=== PATIENT | female | born 1950 | race Caucasian/White ===

== ENCOUNTER 2018-08-15 18:09 | Emergency (ER) | payer MEDICARE, SELFPAY ==
[2018-08-15 18:11] VITALS: BP 183/86; PULSE 79; RESP 28; TEMP 36.2; O2SAT 100; BMI 43.5
--- NOTE | 2018-08-15 18:14 | EKG12_ITS ---
Test Reason : CP Blood Pressure : / mmHG Vent. Rate : 073 BPM Atrial Rate : 073 BPM P-R Int : 178 ms QRS Dur : 108 ms QT Int : 414 ms P-R-T Axes : 059 -51 056 degrees QTc Int : 456 ms Normal sinus rhythm Left anterior fascicular block Moderate voltage criteria for LVH, may be normal variant Lateral infarct , age undetermined Abnormal ECG Confirmed by MAYURI MARTINEZ, SHERWIN ([id number]), supervising editor news reel SHAJI MOAR ([id number]) on 08/20/2018 9:11:05 AM Referred By: DC Confirmed By:SHERWIN MESSINA MD
--- NOTE | 2018-08-15 18:14 | RAD_ITS ---
STUDY: X-RAY CHEST REASON FOR EXAM: Female, 68 years old. Chest pain TECHNIQUE: Single AP portable view of the chest. COMPARISON: 11/01/2013. FINDINGS: The lungs are clear and expanded. There is no demonstrated pleural abnormality. Normal size heart. Normal mediastinum and pop. Normal visualized pulmonary arteries. Normal visualized aortic arch and descending thoracic aorta. Normal visualized thoracic spine. Normal visualized ribs, clavicles, and shoulders. There is no demonstrated abnormality of the visualized soft tissue structures of the upper abdomen. RAD/Chest 1 View (Portable) IMPRESSION: Normal x-ray examination of the chest. Electronically Signed: Link Barahona MD at 18:57 EST , Service support ,
[2018-08-15 18:38] LABS: Absolute Lymphocyte Count 2.98 X10^3/ul (0.83-4.51); Absolute Neutrophil Count 6.9 X10^3/uL (2.0-7.7); Basophil% 0.9 % (0-1); Eosinophil# 0.39 X10^3/uL; Eosinophils% 3.5 % (0-5); Hemoglobin 14.1 g/dl (12.0-15.0); Lymphocyte # 2.98 X10^3/ul (4.0); Lymphocyte % 26.6 % (19-41); Mean Corpuscular Hgb 29.9 pg (27.0-32.0); Mean Corpuscular Volume 93.4 fL (81-99); Mean Platelet Vol. 11.7 fl (6.2-12.0); Monocyte# 0.88 X10^3/uL; Monocyte% 7.8 % (0-10); Neutrophil # 6.85 X10^3/uL (2.7-7.7); POSITIVE COUNT NO; POSITIVE DIFFERENTIAL NO; POSITIVE MORPHOLOGY NO; Platelet Count 224 K/mm3 (150-450); RBC Distribution Width CV 13.3 % (11.6-14.6); RBC Distribution Width SD 45.7 fl (35.1-43.9); Red Blood Count 4.71 M/mm3 (4.2-5.4); White Blood Count 11.2 K/mm3 (4.4-11.0)
[2018-08-15 18:52] LABS: Anion Gap 5 (5-15); BUN 16 mg/dL (7-18); BUN/Creat Ratio 20.3 RATIO (10-20); Calcium,Total 8.5 mg/dL (8.5-10.1); Chloride 105 mmol/L (98-107); Creatinine, Serum 0.79 mg/dL (0.55-1.02); EST Glomerular Filtration Rate 77 mL/min (>60); Est Glom Filt Rate - Afr Amer 93 mL/min (>60); Glucose 85 mg/dL (74-106); Potassium 3.9 mmol/L (3.5-5.1); Sodium Level 138 mmol/L (136-145)
[2018-08-15] MEDS: Penicillin Vk 250 MG Tablet 500 MG PO (18:55)
[2018-08-15 19:16] VITALS: BP 145/69; PULSE 67; RESP 20; O2SAT 99
--- NOTE | 2018-08-15 19:59 | ED.VISSUMM ---
- ER Visit Summary Date of Service: 08/15/18 Chief Complaint: Sore throat History of Present Illness: The patient is a 68 F with a sore throat that started today around 1230. It came on while she was sitting and talking. She did not eat anything new or take any new medications. No history of anaphylaxis or other allergic reactions. No change in her medications. Her throat has been increasingly more painful throughout the day, and she felt that it was causing her difficulty breathing. She says she actually has pain with breathing and swallowing. No change in her voice. She does have a runny nose as well as ear pain. Denies fevers. Physical Examination: Afebrile and vital signs unremarkable. Pulse ox is normal. Speaking in full sentences with a normal voice. HEENT exam is unremarkable except for posterior oropharyngeal erythema. No masses. No lymphadenopathy. Range of motion of her neck. No meningeal signs. No stridor or drooling. Lungs clear. Heart regular. Skin appears normal. Cranial nerves grossly intact. Test Results: EKG showed sinus rhythm at a rate of 73. Chest x-ray was normal. White count 11.2. Metabolic panel normal. Troponin normal. Emergency Department Course and Treatment: Patient was complaining of shortness of breath and so nursing ordered a workup. Her workup was unremarkable. I believe her shortness of breath is related to her sore throat. Her airway is intact. There are no red flag features. No sign of masses. Good range of motion of her neck and otherwise unremarkable exam. She was treated with Decadron and Pen-Vee K. Patient was observed. On reevaluation, she was stable. No new or worsening issues. Vitals unremarkable. Oxygen normal. Breathing normal. I believe the patient is appropriate for outpatient follow-up. She has pharyngitis without any other red flag features. She was treated with Pen-Vee K and a burst therapy of steroids. Return for any new or worsening issues. Treatment Plan: As above Disposition: Discharge Impression: 1. Pharyngitis This note was generated with [employer] dictation software. It may contain incorrect words, spelling, and punctuation that were not noted in review of the chart prior to signing ED Disposition - Plan for ED Patient: Chief Complaint: Chest Pain Referrals: Anila Vale DO [Primary Care Provider] -
--- NOTE | 2018-08-15 20:02 | ED.DCSUM_ITS ---
- ER Visit Summary Date of Service: 08/15/18 Chief Complaint: Sore throat History of Present Illness: The patient is a 68 F with a sore throat that started today around 1230. It came on while she was sitting and talking. She did not eat anything new or take any new medications. No history of anaphylaxis or other allergic reactions. No change in her medications. Her throat has been increasingly more painful throughout the day, and she felt that it was causing her difficulty breathing. She says she actually has pain with breathing and swallowing. No change in her voice. She does have a runny nose as well as ear pain. Denies fevers. Physical Examination: Afebrile and vital signs unremarkable. Pulse ox is normal. Speaking in full sentences with a normal voice. HEENT exam is unremarkable except for posterior oropharyngeal erythema. No masses. No lymphadenopathy. Range of motion of her neck. No meningeal signs. No stridor or drooling. Lungs clear. Heart regular. Skin appears normal. Cranial nerves grossly intact. Test Results: EKG showed sinus rhythm at a rate of 73. Chest x-ray was normal. White count 11.2. Metabolic panel normal. Troponin normal. Emergency Department Course and Treatment: Patient was complaining of shortness of breath and so nursing ordered a workup. Her workup was unremarkable. I believe her shortness of breath is related to her sore throat. Her airway is i ntact. There are no red flag features. No sign of masses. Good range of motion of her neck and otherwise unremarkable exam. She was treated with Decadron and Pen-Vee K. Patient was observed. On reevaluation, she was stable. No new or worsening issues. Vitals unremarkable. Oxygen normal. Breathing normal. I believe the patient is appropriate for outpatient follow-up. She has pharyngitis without any other red flag features. She was treated with Pen-Vee K and a burst therapy of steroids. Return for any new or worsening issues. Treatment Plan: As above Disposition: Discharge Impression: 1. Pharyngitis This note was generated with [employer] dictation software. It may contain incorrect words, spelling, and punctuation that were not noted in review of the chart prior to signing ED Disposition - Plan for ED Patient: Chief Complaint: Chest Pain Referrals: Anila Vale DO [Primary Care Provider] -
--- NOTE | 2018-08-15 20:02 | ED.DEP ---
ED Disposition - Plan for ED Patient: Chief Complaint: Chest Pain Instructions: Self-Care for Sore Throats Prescriptions: Prednisone 10 mg PO UD #33 tab Penicillin V Potassium 500 mg PO BID #20 tab Referrals: Anila Vale DO [Primary Care Provider] -
--- OUTSIDE RECORDS SUMMARY | 2018-10-20 17:07 | XMS RPT_ITS ---
:1950 Author Organization [place] Support Name Relationship Address Phone THERESA ROGERS Unavailable [id number] + [place] [address] LARRY WILLIAMSON Unavailable [address] + [place] [address] R Unavailable Unavailable Unavailable ROGERS WILLIAM Unavailable Unavailable + THERESA ROGERS Unavailable [address] + [place] [address] ROGERSWILLIAM Unavailable Unavailable + THERESA ROGERS Unavailable [address] + [place] [address] Care Team Providers Name Role Phone Darrel, Dayron Attending Unavailable Deyanira Gee Primary Care Unavailable DR. DEYANIRA GEE DO Attending Unavailable REFERRING REFERRING, SANJUANA WEI WO ID~[id number] Un[address] DR. DEYANIRA GEE DO Attending Unavailable REFERRING REFERRING, Anahy WEI WO ID~[id number] Primary Care Unavailable PROBLEMS PROBLEMS DATE TYPE CONDITION / CODE ATTENDING STATUS SOURCE 07/06/2018 Ad[address] Essential [address]Z [address]. Active [facility] Diagnosis (primary) DEYANIRA Gutierrez hypertension / Repository I10(ICD-10) 12/14/2017 Admitting Hypothyroidism, MARLEN BAEZ DR. Active [facility] Diagnosis unspecified / DEYANIRA Gutierrez E03.9(ICD-10) Repository 12/14/2017 Admitting Age-related MARLEN BAEZ DR. Active [facility] Diagnosis osteoporosis DEYANIRA [facility] without current Repository pathological fracture / M81.0(ICD-10) PROCEDURES PROCEDURES No Procedure Records FoundRESULTS RESULTS 12 LEAD ELECTROCARDIOGRAM Observed: 08/20/2018 Status: F Source: YANG 9:11 AM [facility] REPOSITORY [facility] Cardiovascular Services [address] [place] [address] 12 Lead EKG 08/15/181814 MR#: [id number] Acct: [id number] Name: SELAM ROGERS Rep #: [id number] : 1950 68 From: Salomón Stevens MD Attending Dr: Status: DEP ER Ordering Dr: Provider,Ed P. Date: 08/15/18 Location: ED Sex: F C Admitted: Test Reason : CP Blood Pressure : / mmHG Vent. Rate : 073 BPM Atrial Rate : 073 BPM P-R Int : 178 ms QRS Dur : 108 ms QT Int : 414 ms P-R-T Axes : 059 -51 056 degrees QTc Int : 456 ms Normal sinus rhythm Left anterior fascicular block Moderate voltage criteria for LVH, may be normal variant Lateral infarct , age undetermined Abnormal ECG Confirmed by MAYURI MARTINEZ, SALOMÓN ([id number]), medical editor SHAJI MORA ([id number]) on 08/20/2018 9:11:05 AM Referred By: DC Confirmed By:SALOMÓN STEVENS MD 08/20/1811 Date Salomón Stevens MD CC: Dayron Rojo MD; ED PHYSICIAN PROVIDER; Deyanira Gee DO Signed EMERGENCY DEPARTMENT Observed: 08/15/2018 Status: F Source: YANG SUMMARY 11:50 PM [facility] REPOSITORY [facility] Medical Records Department [address] [place] [address] Emergency Department Summary 08/15/181958 MR#: [id number] Acct: [id number] Name: SELAM ROGERS Rep #: [id number] : 1950 68 From: Dayron Rojo MD PCP: Deyanira Gee DO Status: DEP ER - ER Visit Summary Date of Service: 08/15/18 Chief Complaint: Sore throat History of Present Illness: The patient is a 68 F with a sore throat that started today around 1230. It came on while she was sitting and talking. She did not eat anything new or take any new medications. No history of anaphylaxis or other allergic reactions. No change in her medications. Her throat has been increasingly more painful throughout the day, and she felt that it was causing her difficulty breathing. She says she actually has pain with breathing and swallowing. No change in her voice. She does have a runny nose as well as ear pain. Denies fevers. Physical Examination: Afebrile and vital signs unremarkable. Pulse ox is normal. Speaking in full sentences with a normal voice. HEENT exam is unremarkable except for posterior oropharyngeal erythema. No masses. No lymphadenopathy. Range of motion of her neck. No meningeal signs. No stridor or drooling. Lungs clear. Heart regular. Skin appears normal. Cranial nerves grossly intact. Test Results: EKG showed sinus rhythm at a rate of 73. Chest x-ray was normal. White count 11.2. Metabolic panel normal. Troponin normal. Emergency Department Course and Treatment: Patient was complaining of shortness of breath and so nursing ordered a workup. Her workup was unremarkable. I believe her shortness of breath is related to her sore throat. Her airway is intact. There are no red flag features. No sign of masses. Good range of motion of her neck and otherwise unremarkable exam. She was treated with Decadron and Pen-Vee K. Patient was observed. On reevaluation, she was stable. No new or worsening issues. Vitals unremarkable. Oxygen normal. Breathing normal. I believe the patient is appropriate for outpatient follow- up. She has pharyngitis without any other red flag features. She was treated with Pen-Vee K and a burst therapy of steroids. Return for any new or worsening issues. Treatment Plan: As above Disposition: Discharge Impression: 1. Pharyngitis This note was generated with PrivateCore dictation software. It may contain incorrect words, spelling, and punctuation that were not noted in review of the chart prior to signing ED Disposition - Plan for ED Patient: Chief Complaint: Chest Pain Referrals: Deyanira Gee, DO [Primary Care Provider] - What to do if you have Problems For any increased pain, shortness of breath, bleeding, nausea or vomiting, chest pain, or any unexpected problems, contact your Primary Care Provider. Call [facility] ([phone]) or report to the closest Emergency Room. Call 911 if necessary. 08/15/182349 <Electronically signed by Dayron Rojo MD> Date Dayron Rojo MD Cosigner Signature (If Indicated): Date CC: Deyanira Gee DO DISCHARGE INSTRUCTION Observed: 08/15/2018 Status: F Source: WASSAIC 11:50 PM [facility] REPOSITORY [facility] Medical Records Department [address] [place] [address] Discharge Instruction 08/15/182001 MR#: [id number] Acct: [id number] Name: SELAM ROGERS Rep #: [id number] : 1950 68 From: Dayron Rjoo MD PCP: Deyanira Gee DO Status: DEP ER ED Disposition - Plan for ED Patient: Chief Complaint: Chest Pain Instructions: Self-Care for Sore Throats Prescriptions: Prednisone 10 mg PO UD #33 tab Penicillin V Potassium 500 mg PO BID #20 tab Referrals: Deyanira Gee DO [Primary Care Provider] - What to do if you have Problems For any increased pain, shortness of breath, bleeding, nausea or vomiting, chest pain, or any unexpected problems, contact your Primary Care Provider. Call [facility] ([phone]) or report to the closest Emergency Room. Call 911 if necessary. 08/15/182349 <Electronically signed by Dayron Rojo MD> Date Dayron Coronado Signature (If Indicated): Date CC: Deyanira Gee, CBC W/DIFF, AUTOMATED Collected: 08/15/2018 Status: F Source: YANG 6:27 PM [facility] REPOSITORY TYPE CODE TESTS RESULT OUT OF RANGE REFERENCE UNITS LAB L100.1000 4.4-11.0 K/mm3 High WBC 11.2 LAB L100.1200 4.2-5.4 M/mm3 Normal RBC 4.71 LAB L100.1300 12.0-15.0 g/dl Normal HGB 14.1 LAB L100.1400 37-47 % Normal HCT 44.0 LAB L100.1500 81-99 fL Normal MCV 93.4 LAB L100.1600 27.0-32.0 pg Normal MCH 29.9 LAB L100.1700 32-36 g/gl Normal MCHC 32.0 LAB L100.1810 11.6-14.6 % Normal RDW CV 13.3 LAB L100.1820 35.1-43.9 fl High RDW SD 45.7 LAB L100.1900 150-450 K/mm3 Normal PLT 224 LAB L100.2000 6.2-12.0 fl Normal MPV 11.7 LAB L100.2100 47-70 % Normal NEUT% 61.0 LAB L100.2200 19-41 % Normal LY% 26.6 LAB L100.2300 0-10 % Normal MONO% 7.8 LAB L100.2400 0-5 % Normal EO% 3.5 LAB L100.2500 0-1 % Normal BASO% 0.9 LAB L100.2550 0.0-0.9 % Normal IM GRAN % 0.200 Result Comment: IG% - Immature Granulocytes (promyelocytes, myelocytes and metamyelocytes) > 1% indicates that a LEFT SHIFT is Present. LAB L100.2620 2.0-7.7 X10 3/uL Normal Absolute Neut 6.9 LAB L100.2720 0.83-4.51 X10 3/ul Normal Absolute Lymph 2.98 Performed By: #### L100.0100 #### [facility] [address] [place], [place], [id number] BASIC METABOLIC Collected: 08/15/2018 Status: F Source: WASSAIC PROFILE (BMP) 6:27 PM [facility] REPOSITORY TYPE CODE TESTS RESULT OUT OF RANGE REFERENCE UNITS LAB L501.0100 74-106 mg/dL Normal GLU 85 Result Comment: Please note revised GLUCOSE reference range effective 2017. LAB L501.1000 7-18 mg/dL Normal BUN 16 LAB L501.1100 0.55-1.02 mg/dL Normal CREAT,SERUM 0.79 Result Comment: The validity of the calculated GFR AND GFRAA in patients over 70 years has not been determined. Clinical correlation is essential. LAB L501.1110 >60 mL/min Normal EST GFR 77 Result Comment: Non- GFR Calc LAB L501.1115 >60 mL/min Normal EST GFR - AA 93 Result Comment: GFR Calc LAB L501.1255 ml/min Normal Estimated CRCL 49.70 LAB L501.1300 10-20 RATIO High BUN/CRE 20.3 LAB L501.2200 8.5-10 mg/dL Normal .1 CA 8.5 LAB L501.5300 136-14 mmol/L Normal 5 NA 138 LAB L501.5600 3.5-5. mmol/L Normal 1 K 3.9 LAB L501.5900 98-107 mmol/L Normal CL 105 LAB L501.6100 21.0-3 mmol/L Normal 2.0 CO2 28.0 LAB L501.6200 5-15 Normal GAP 5 Performed By: #### L500.2500, L501.4010 #### [facility] [address] [place], [place], [address] TROPONIN-I Collected: 08/15/2018 Status: F Source: WAS[place] 6:27 PM [facility] REPOSITORY TYPE CODE TESTS RESULT OUT OF RANGE REFERENCE UNITS LAB L501.4010 <0.045 ng/mL Normal < 0.015 TROPONIN-I Result Comment: TROPONIN-I EXPECTED VALUES <0.045 Negative 0.045 - 0.590 Consistent with Cardiac Damage > OR = 0.600 Critical Value Not every elevated troponin is indicative of SD. These values should be used with clinical judgement in examining the patient's clinical picture for diagnosis. To establish a diagnosis of SD versus myocardial injury, there must be a demonstrated rise and/or fall in the troponin values, in addition to ischemic symptoms, EKG changes, new regional wall motion abnormality, and/or angiographical evidence. PLEASE NOTE: REFERENCE RANGES EDITED 17 Performed By: #### L500.2500, L501.4010 #### [facility] [address] [place], [address] CHEST 1 VIEW Observed: 08/15/2018 Status: F Source: WASSAIC (PORTABLE) 6:15 PM [facility] REPOSITORY [facility] Imaging Services [address] [place] [address] Chest 1 View (Portable) MR#: [id number] Acct: [id number] Name: SELAM ROGERS Rep #: [id number] : 1950 F 68 From: Link Barahona MD PCP: Sneha Han Status: PRE ER Study: Chest 1 View (Portable) Date of Exam: 08/15/18 Exam# [id number] Ordering Dr: Dayron Rojo MD STUDY: X-RAY CHEST REASON FOR EXAM: Female, 68 years old. Chest pain TECHNIQUE: Single AP portable view of the chest. COMPARISON: 11/01/2013. FINDINGS: The lungs are clear and expanded. There is no demonstrated pleural abnormality. Normal size heart. Normal mediastinum and pop. Normal visualized pulmonary arteries. Normal visualized aortic arch and descending thoracic aorta. Normal visualized thoracic spine. Normal visualized ribs, clavicles, and shoulders. There is no demonstrated abnormality of the visualized soft tissue structures of the upper abdomen. RAD/Chest 1 View (Portable) IMPRESSION: Normal x-ray examination of the chest. Electronically Signed: Link Barahona MD at 18:57 EST , Service support , CC: Sneha Han; Dayron Rojo MD Glass Cutter Hand: Signed TSH Collected: 07/06/2018 Status: F Source: [facility] 11:57 AM [place] [facility] REPOSITORY TYPE CODE TESTS RESULT OUT OF RANGE REFERENCE UNITS LAB TSH(LOINC) 0.36-3.74 mcIU/mL TSH 2.64 Performed By: #### TSH, CMP, GFR, VIDH #### [place] [address] CMP Collected: 07/06/2018 Status: F Source: [facility] 11:57 AM [facility] REPOSITORY TYPE CODE TESTS RESULT OUT OF REFERENCE UNITS RANGE LAB GLU(LOINC) 80-115 mg/dL Glucose Level 110 LAB NA(LOINC) 136-145 mmol/L Sodium Level 139 LAB K(LOINC) 3.5-5.1 mmol/L Potassium Level 4.5 LAB CL(LOINC) 98-107 mmol/L Chloride 102 LAB CO2(LOINC) 23-31 mmol/L CO2 30 LAB EBAL(LOINC mEq/L ) Electrolyte Balance 7.0 LAB BUN(LOINC) 7-18 mg/dL BUN 16 LAB CRE(LOINC) 0.55-1.02 mg/dL Creatinine Lvl (s) 0.83 LAB BC(LOINC) 7-27 ratio BUN/Creatinine 19 Ratio LAB CA(LOINC) 8.4-10.2 mg/dL Calcium Lvl 9.0 LAB PROT(LOINC 6.4-8.2 G/dL ) Total Protein 7.7 LAB ALB(LOINC) 3.4-4.8 G/dL Albumin Level 3.6 LAB GLB(LOINC) G/dL Globulin 4.1 LAB AG(LOINC) 1.1-2.5 ratio Low A/G Ratio 0.9 LAB BILT(LOINC 0.2-1.0 mg/dL ) Bili Total 0.4 LAB AP(LOINC) 40-135 U/L Alk Phos 124 LAB AST(LOINC) 10-40 U/L AST/SGOT 19 LAB ALT(LOINC) 10-35 U/L ALT/SGPT 27 Performed By: #### TSH, CMP, GFR, VIDH #### [address] [address] .GFR Collected: 07/06/2018 Status: F Source: [facility] 11:57 AM [place] REPOSITORY TYPE CODE TESTS RESULT OUT OF REFERENCE UNITS RANGE LAB GFRAA(LOINC ml/min/1.73 ) sqm GFR 83 Mongolian Result Comment: GFR Population mean for , Non- Americans Ages 20-29 = 116 mL/min/1.73 sq.m. Ages 30-39 = 107 mL/min/1.73 sq.m. Ages 40-49 = 99 mL/min/1.73 sq.m. Ages 50-59 = 93 mL/min/1.73 sq.m. Ages 60-69 = 85 mL/min/1.73 sq.m. Ages 70+ = 75 mL/min/1.73 sq.m. Chronic Kidney Disease: Less than 60 mL/min/1.73 square meters End Stage Renal Disease: Less than 15 mL/min/1.73 square meters LAB GFRNO(LOINC) ml/min/1.73sqm GFR Non- 68 Result Comment: GFR Population mean for , Non- Americans Ages 20-29 = 116 mL/min/1.73 sq.m. Ages 30-39 = 107 mL/min/1.73 sq.m. Ages 40-49 = 99 mL/min/1.73 sq.m. Ages 50-59 = 93 mL/min/1.73 sq.m. Ages 60-69 = 85 mL/min/1.73 sq.m. Ages 70+ = 75 mL/min/1.73 sq.m. Chronic Kidney Disease: Less than 60 mL/min/1.73 square meters End Stage Renal Disease: Less than 15 mL/min/1.73 square meters Performed By: #### TSH, CMP, GFR, VIDH #### [address] [address] VIDH Collected: 07/06/2018 Status: F [facility]57 AM [place] [facility] REPOSITORY TYPE CODE TESTS RESULT OUT OF RANGE REFERENCE UNITS LAB VIDH(LOINC) ng/mL Vit. D 17 25-Hydroxy Result Comment: Interpretive Values Based on Total 25(OH)D: Severe Deficiency <20 ng/mL Mild to Moderate Deficiency 20-30 ng/mL Optimum Levels 30-100 ng/mL Toxicity Possible >100 ng/mL Performed By: #### TSH, CMP, GFR, VIDH #### [address] [address] TSH Collected: 12/14/2017 Status: F Source: [facility] 2:22 PM [place] REPOSITORY TYPE CODE TESTS RESULT OUT OF RANGE REFERENCE UNITS LAB TSH(LOINC) 0.27-4.20 mcIU/mL TSH 2.41 Performed By: #### TSH, CMP, GFR #### [address] [address] #### VIDH #### [address] [address] CMP Collected: 12/14/2017 Status: F Source: [facility] 2:22 PM [facility] REPOSITORY TYPE CODE TESTS RESULT OUT OF REFERENCE UNITS RANGE LAB GLU(LOINC) 80-115 mg/dL Glucose Level 94 LAB NA(LOINC) 136-146 mEq/L Sodium Level 138 LAB K(LOINC) 3.5-5.1 mEq/L Potassium Level 4.4 LAB CL(LOINC) 98-107 mEq/L Chloride 102 LAB CO2(LOINC) 23-31 mEq/L CO2 28 LAB EBAL(LOINC mEq/L ) Electrolyte Balance 8.0 LAB BUN(LOINC) 7.0-18.0 mg/dL BUN 14.4 LAB CRE(LOINC) 0.6-1.2 mg/dL Creatinine Lvl (s) 0.7 LAB BC(LOINC) 7-27 ratio BUN/Creatinine 21 Ratio LAB CA(LOINC) 8.4-10.2 mg/dL Calcium Lvl 9.4 LAB PROT(LOINC 6.0-8.3 G/dL ) Total Protein 7.5 LAB ALB(LOINC) 3.4-4.8 G/dL Albumin Level 4.2 LAB GLB(LOINC) G/dL Globulin 3.3 LAB AG(LOINC) 1.1-2.5 ratio A/G Ratio 1.3 LAB BILT(LOINC 0.2-1.0 mg/dL ) Bili Total 0.4 LAB AP(LOINC) 40-135 IU/L Alk Phos 94 LAB AST(LOINC) 10-40 IU/L AST/SGOT 16 LAB ALT(LOINC) 10-35 IU/L ALT/SGPT 13 Performed By: #### TSH, CMP, GFR #### [address] [address] #### VIDH #### [address] [address] .GFR Collected: 12/14/2017 Status: F Source: [facility] 2:22 PM [place] REPOSITORY TYPE CODE TESTS RESULT OUT OF REFERENCE UNITS RANGE LAB GFRAA(LOINC ml/min/1.73 ) sqm GFR 102 Mongolian Result Comment: GFR Population mean for , Non- Americans Ages 20-29 = 116 mL/min/1.73 sq.m. Ages 30-39 = 107 mL/min/1.73 sq.m. Ages 40-49 = 99 mL/min/1.73 sq.m. Ages 50-59 = 93 mL/min/1.73 sq.m. Ages 60-69 = 85 mL/min/1.73 sq.m. Ages 70+ = 75 mL/min/1.73 sq.m. Chronic Kidney Disease: Less than 60 mL/min/1.73 square meters End Stage Renal Disease: Less than 15 mL/min/1.73 square meters LAB GFRNO(LOINC) ml/min/1.73sqm GFR Non- >60 Result Comment: GFR Population mean for , Non- Americans Ages 20-29 = 116 mL/min/1.73 sq.m. Ages 30-39 = 107 mL/min/1.73 sq.m. Ages 40-49 = 99 mL/min/1.73 sq.m. Ages 50-59 = 93 mL/min/1.73 sq.m. Ages 60-69 = 85 mL/min/1.73 sq.m. Ages 70+ = 75 mL/min/1.73 sq.m. Chronic Kidney Disease: Less than 60 mL/min/1.73 square meters End Stage Renal Disease: Less than 15 mL/min/1.73 square meters Performed By: #### TSH, CMP, GFR #### Andie [address] [address] #### VIDH #### [address] [address] VIDH Collected: 12/14/2017 Status: F Source: [facility] 2:22 PM [place] REPOSITORY TYPE CODE TESTS RESULT OUT OF RANGE REFERENCE UNITS LAB VIDH(LOINC) ng/mL Vit. D 26 25-Hydroxy Result Comment: Interpretive Values Based on Total 25(OH)D: Severe Deficiency <20 ng/mL Mild to Moderate Deficiency 20-30 ng/mL Optimum Levels 30-100 ng/mL Toxicity Possible >100 ng/mL Performed By: #### TSH, CMP, GFR #### [facility] [address] [place], [place] [address] #### VIDH #### [facility] [address] [place] [address] ALLERGIES ALLERGIES DATE TYPE / CODE NAME / CODE REACTION SEVERITY SOURCE 08/15/2018 Drug No Known Unknown [facility] Allergy/4160 Allergies/F00 Hospital 627[address](SNOMED 7750636(RXNOR Repository CT) M) ENCOUNTERS ENCOUNTERS ADMIT/DISCHARGE ACCOUNT NUMBER ADMITTING ENCOUNTER LOCATION SOURCE CLASS 08/15/2018/08/15/19 [id number] Emergency [place] [facility] ding:ED Repository 07/06/2018/07/10/20 [id number] Ambulatory BBuilding:DR Chaves 18 [facility] Repository 12/14/2017/12/19/19 [id number] Ambulatory BBuilding:JIGNESH [address] [facility] Repository PAYERS PAYERS ENCOUNTER GUARANTOR PAYER SUBSCRIBER SOURCE 08/15/2018 ADA L [id number] Primary ADA L ADKINSDOB: [place] [address] Insurance:[facility] [id number] COMP *[facility] Hospital [address]Jqj: (309) CONTRACTED*Policy Repository [phone] () Number: [id number] Date:[id number] [address] [address]GC: 08/15/2018 Secondary NOT GIVENUNK [place] Insurance:SELF PAY [facility] Number: Effective Repository Date:2018-08-15 07/06/2018 ADA L ADKINSDOB: Primary ADA L ADKINSDOB: [facility] [id number] E Insurance:[facility] [id number] [address] [address], [place] Number: [address] [id number]: (330 [id number]: Date:2018-07-06 [phone] (HP)Tel: [phone] (HP) (WP) Name:CARMEN Box 000-0000 (WP) MIRELLA Estevez [id number]: 12/14/2017 ADA L ADKINSDOB: Primary ADA L ADKINSDOB: [place] [employer] [id number] E Insurance:[id number] [facility] [address] [facility] LISA BYRD Number: [address] [id number]: (330) [id number]: Date:2017-02-11 [id number] (HP)Tel: [phone] (HP) (WP) Name:CARMEN Box 000-0000 (WP) MIRELLA Estevez [id number]:
== END 2018-08-15 20:13 | disposition home or self-care (01) ==
LOC: ED 19:24
PROVIDERS: Emergency Provider Emergency Medicine
DX: J02.9 Acute pharyngitis, unspecified (principal); R06.00 Dyspnea, unspecified; I10 Essential (primary) hypertension; E03.9 Hypothyroidism, unspecified; M79.7 Fibromyalgia; M81.0 Age-related osteoporosis without current pathological fracture
CPT/HCPCS: 71045; 80048; 84484; 85025; 93005; 99285; A4216

== ENCOUNTER 2019-10-03 12:40 | Emergency (ER) | payer MEDICARE, SELFPAY ==
[2019-10-03 12:41] VITALS: BP 156/82; PULSE 83; RESP 15; TEMP 37.2; O2SAT 94; BMI 41.5
--- NOTE | 2019-10-03 13:48 | CT_ITS ---
STUDY: CT BRAIN WITHOUT CONTRAST REASON FOR EXAM: Female, 69 years old. FALL/HEAD INJURY. No LOC RADIATION DOSAGE (If Supplied By Facility): CTDIvol = ( 60.81 ) mGy, DLP = ( 1067.08 ) mGycm TECHNIQUE: Transaxial CT imaging of the brain was performed without administration of intravenous contrast material. Individualized dose optimization techniques were used for this CT. COMPARISON: No relevant priors. FINDINGS: A lamellated, calcified 8 mm nodule seen in the right occipital scalp. No possibly a partially calcified sebaceous cyst, fibroma, or hematoma Normal calvarium. Normal size ventricles and extra-axial spaces for the patient''s age. There are occasional areas of decreased attenuation within the white matter tracts of the supratentorial brain, consistent with microvascular disease changes. Normal basal ganglia and thalami. Normal brainstem. Normal cerebellum. There is no intracranial hemorrhage. There are no findings of an acute ischemic infarction. Normal visualized paranasal sinuses. CT/Brain/Head without Contrast IMPRESSION: Chronic microvascular ischemic changes of the brain. No acute intracranial injury. Electronically Signed: Manny Rivera MD at 14:16 EST , Service support ,
--- NOTE | 2019-10-03 13:53 | ED.DCSUM_ITS ---
- ER Visit Summary Date of Service: 10/03/19 Chief Complaint: Tripped and fell complaining of head injury, ribs and left wrist History of Present Illness: The patient is a 69 F history of COPD and hypothyroidism. Patient tripped and fell today landing on thin carpet that was overlying cement. Complaining of pain to her forehead, left wrist and anterior rib cage. No LOC. Denies being on blood thinners. No neck pain no back pain no hip pain. Says she felt fine prior to the fall. Physical Examination: Female in no hallway in a wheelchair. Accompanied by family. Vital signs are stable afebrile. Pulse ox 94% room air no signs hypoxia. H EENT exam pupils are reactive light. She has abrasion contusion on his middle of her forehead and bridge of her nose. Nose is mildly tender but there is no deformity. No active bleeding. Pupils are unreactive laser motions are intact. Scalp nontender no hematoma. C-spine nontender. Trachea midline. Lungs clear to auscultation bilaterally. Heart regular rhythm no murmur. Chest wall anterior lower sternum and ribs are tender to palpation. No ecchymosis or bruising. No subcu air. No crepitance. Abdomen soft nontender normal bowel sounds no peritoneal signs. The abdomen itself is completely nontender. Pelvic girdle intact. Extremities moves all 4. Neurovascular intact. No deformity. Equal symmetrical administrative personal assistant strength. Dorsi plantarflexion intact. She had some left wrist discomfort. Currently is not swollen. Is not significantly tender. She has normal range of motion to her left wrist and hand. Normal administrative personal assistant strength. Back is nontender. Neurologically she is awake and alert with no focal motor deficits. Test Results: CAT scan of the brain shows read by the radiologist and reviewed by me. Shows no acute abnormality. Chest x-ray AP and lateral 2 views read by myself as no acute abnormality. No obvious rib fracture. No obvious pneumothorax. Also read by the radiologist. Left wrist x-ray 3 views read by myself and the radiologist showed no acute abnormality. Arthritic changes. But no fracture or dislocation. Emergency Department Course and Treatment: Patient with fall with a head injury. Concern for possibly fractured ribs or wrist injury. X-rays to be obtained. Tylenol for pain. Treatment Plan: Exam patient is doing well well at 1518. Was given a [place] in the ER. Ice all sore areas. Tylenol for pain. Use a pillow to support her ribs. I did explain to her there could be small fractured ribs that we do not see on the x- ray. Disposition: Discharge Impression: Acute trip and fall Acute close head injury Acute left wrist contusion Acute left anterior rib cage contusion This note was generated with Gangkr dictation software. It may contain incorrect words, spelling, and punctuation that were not noted in review of the chart prior to signing ED Disposition - Plan for ED Patient: Referrals: Anila Vale DO [Primary Care Provider] -
--- NOTE | 2019-10-03 14:05 | RAD_ITS ---
STUDY: X-RAY CHEST REASON FOR EXAM: Female, 69 years old. RIGHT LOWER ANTERIOR AND LATERAL RIB PAIN S/P FALL TECHNIQUE: PA and lateral views of the chest. COMPARISON: Portable AP upright chest x-ray August 15, 2018. FINDINGS: The lungs are clear and moderately expanded. There is no demonstrated pleural abnormality. Normal size heart. Normal mediastinum and pop. Normal visualized pulmonary arteries. There is stable minor atherosclerotic calcification of the aortic arch. There are stable multilevel degenerative changes of the visualized thoracic spine. [id number] mid lumbar levorotoscoliosis is seen near the bottom of the field of view. 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 Surgical clips of prior cholecystectomy project in the right upper quadrant of the abdomen. RAD/Chest PA and Lateral IMPRESSION: No acute cardiopulmonary disease. No radiographic sign of acute thoracic injury. Electronically Signed: Manny Rivera MD at 14:48 EST , Service support ,
--- NOTE | 2019-10-03 14:13 | RAD_ITS ---
STUDY: X-RAY - LEFT WRIST REASON FOR EXAM: Female, 69 years old. PAIN S/P FALL TECHNIQUE: 3 view(s) of the wrist were obtained. COMPARISON: None. FINDINGS: Normal visualized distal radius and ulna. Normal radiocarpal articulation. There is slight narrowing of the proximal aspect of the radioulnar articulation. Cystic degenerative changes are noted in the mid body of the lunate. There is periarticular spurring of the proximal distal articular margins of the trapezium. Moderately severe degenerative narrowing of the joint space between the distal scaphoid and trapezium/trapezoid. Subtle degenerative calcifications also suggested in the joint space between the distal scaphoid and proximal capitate. There is borderline narrowing at the distal joint space between the trapezium and lateral margin of the hamate. There is degenerative arthrosis of the carpometacarpal articulation of the thumb, and the trapezium also shows degenerative change at its articulation to the lateral base of the second metacarpal. Normal second through fifth carpometacarpal articulations. Very early medial periarticular spurring and possible lateral subcortical cystic degenerative change noted in the base of the first metacarpal. Normal visualized 2-5 metacarpal bones. The soft tissue structures are unremarkable. There is no demonstrated osseous destructive lesion. There is no demonstrated acute fracture. 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 Electronically Signed: Manny Rivera MD at 14:46 EST , Service support ,
[2019-10-03 15:21] VITALS: BP 149/73; PULSE 85; RESP 16; O2SAT 98
--- NOTE | 2019-10-03 15:24 | ED.DEP ---
ED Disposition - Plan for ED Patient: Disposition: Home or Assisted Living Instructions: Chest Wall Contusion, Wrist Sprain Referrals: Anila Vale DO [Primary Care Provider] - 1 Week if not improving Additional Instructions: Ice all sore areas. Use a pillow to support your ribs. Your x-rays did not show any broken bones. Tylenol for pain.
[2019-10-03] MEDS: HYDROcodone Bitartrate/Apap 5/325 Tablet PO (15:42)
== END 2019-10-03 15:47 | disposition home or self-care (01) ==
PROVIDERS: Emergency Provider Emergency Medicine
DX: S09.90XA Unspecified injury of head, initial encounter (principal); S60.212A Contusion of left wrist, initial encounter; W01.0XXA Fall on same level from slipping, tripping and stumbling without subsequent striking against object, initial encounter; J44.9 Chronic obstructive pulmonary disease, unspecified; E03.9 Hypothyroidism, unspecified
CPT/HCPCS: 70450; 71046; 73110; 99283

== ENCOUNTER → 2020-04-29 | Outpatient (CLI) | payer MEDICARE, SELFPAY ==
--- NOTE | 2020-04-29 09:16 | BD_ITS ---
STUDY: DUAL ENERGY X-RAY ABSORPTIOMETRY / DXA REASON FOR EXAM: Female, 69 years old. 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 COMPARISON: Comparison is made with prior study dated 09/08/2016. FINDINGS: Lumbar Spine (L1-L4): g/cm2 (1.402) / T-score (1.8) / Z-score (3.5) Findings are suggestive of normal bone density with a low fracture risk. Left Femur Total: g/cm2 (0.938) / T-score (-0.6) / Z-score (1.0) Left Femoral Neck: g/cm2 (1.064) / T-score (0.2) / Z-score (1.9) The T-Scores on the most recent prior examination were: Lumbar Spine (L1-L4): There has been worsening of bone density since the previous examination. Left Femur Total: which represents a worsening of 1.6%. BD/Dexa Bone Density Study IMPRESSION: The patient is considered normal as outlined below according to World Dim[employer] Organization (WHO) criteria with a low fracture risk. There has been worsening of bone density since the previous examination. Reference Information: The T-score is the number of standard deviations above or below the standard which is normal for young adults at their peak bone mineral density. The World Health Organization (WHO) interprets the T-scores as follows: Above -1 Normal bone density Between -1 and -2.5 Osteopenia Equal to / or below -2.5 Osteoporosis As a practical clinical guideline, osteopenia may be graded as follows: Mild -1 through -1.5 Moderate -1.6 through -2.0 Severe -2.1 through -2.4 The Z-score is the number of standard deviations above or below age-matched controls. A Z-score of less than -1.5 would be considered abnormal. References: 1. NIH Osteoporosis and Related Bone Diseases http://www.osteo.org 2. International Society for Clinical Densitometry http://www.iscd.org 3. National Osteoporosis Foundation http://www.nof.org Electronically Signed: Miguel Palacios, at 15:46 EDT , Service support ,
--- NOTE | 2020-04-29 09:17 | BI_ITS ---
MAMMOGRAPHY - BILATERAL SCREENING REASON FOR EXAM: Female, 69 years old. Routine annual screening examination. PERTINENT HISTORY: Non-contributory. TECHNIQUE: Digital bilateral breast piedad (3D mammographic acquisition) in the CC and MLO projections. 2-D mediolateral oblique (MLO) and craniocaudad (CC) views of both breasts were obtained. CAD: Full Field Digital Mammography with Computer Added Detection was performed. COMPARISON: Comparison is made with prior examination dated 10/13/2011. FINDINGS: Breast Composition: The breasts are almost entirely fatty. There are no dominant masses or suspicious calcifications. No other significant abnormalities are identified. There has been no significant change since the prior study. BI/SCREEN MAMM (CAD) W/PIEDAD BILAT IMPRESSION: Stable bilateral screening mammogram. Yearly follow-up mammogram recommended. (A) ASSESSMENT CATEGORY: BIRADS Category 1: Negative. A letter regarding these results will be sent to the patient by the facility within 30 days. Approximately 10% of breast cancers are not detected by mammography. A normal mammogram should not delay biopsy of a clinically suspicious abnormality. [id number] Electronically Signed: Miguel Palacios, at 10:59 EDT , Service support ,
== END | disposition home or self-care (01) ==
LOC: OPBD 09:10
DX: M81.0 Age-related osteoporosis without current pathological fracture (principal); Z12.31 Encounter for screening mammogram for malignant neoplasm of breast
CPT/HCPCS: 77063; 77067; 77080

== ENCOUNTER → 2020-07-22 11:39 | Outpatient (CLI) | payer MEDICARE, SELFPAY ==
[2020-07-22 14:05] LABS: AST(SGOT) 16 U/L (15-37); Alanine Aminotransfer ALT/SGPT 26 U/L (13-56)
== END ==
PROVIDERS: Referring Provider Internal Medicine Pulmonary Disease; Visit Provider Internal Medicine Pulmonary Disease
DX: G47.10 Hypersomnia, unspecified (principal); J43.9 Emphysema, unspecified; R13.10 Dysphagia, unspecified
CPT/HCPCS: 36415; 84450; 84460

== ENCOUNTER → 2023-06-28 | Outpatient (CLI) | payer MEDICARE, SELFPAY ==
[2023-06-28 15:29] LABS: Absolute Neutrophil Count 6.3 X10^3/uL (2.0-7.7); Eosinophils% 3.1 % (0-5); Hematocrit 41.4 % (37-47); Hemoglobin 13.4 g/dL (12.0-15.0); Lymphocyte % 24.1 % (19-41); Mean Corp Hgb Conc 32.4 g/dL (32-36); Mean Corpuscular Hgb 31.4 pg (27.0-32.0); Monocyte# 0.55 X10^3/uL; Monocyte% 5.8 % (0-10); NRBC Flagged by Analyzer 0 % (0-5); Neutrophil # 6.26 X10^3/uL (2.7-7.7); Neutrophil % 65.6 % (47-70); Platelet Count 206 K/mm3 (150-450); RBC Distribution Width CV 13.1 % (11.6-14.6); RBC Distribution Width SD 46.6 fl (35.1-43.9); Red Blood Count 4.27 M/mm3 (4.2-5.4); White Blood Count 9.6 K/mm3 (4.4-11.0)
[2023-06-28 15:59] LABS: Erythrocyte Sedimentation Rate 16 mm/hr (0-30)
[2023-06-28 16:02] LABS: CRP 3.93 mg/L (0.0-3.0)
[2023-06-30 13:07] LABS: ANTINUCLEAR ANTIBODIES DIRECT Negative (Negative)
== END | disposition home or self-care (01) ==
LOC: MTLAB 13:13
PROVIDERS: Referring Provider Internal Medicine Pulmonary Disease; Visit Provider Internal Medicine Pulmonary Disease
DX: R05.9 Cough, unspecified (principal); J45.909 Unspecified asthma, uncomplicated; R06.02 Shortness of breath
CPT/HCPCS: 36415; 85025; 85652; 86038; 86140